=== PATIENT | female | born 1980 | race Caucasian/White ===

== ENCOUNTER → 2016-10-03 | Outpatient (CLI) | payer MEDICARE, OTHER ==
--- NOTE | 2016-10-03 08:35 | CT ---
EXAMINATION TYPE: CT brain wo con DATE OF EXAM: 10/03/2016 8:03 AM COMPARISON: NONE HISTORY: Migraine uspec without migraunosus CT DLP: [address] of the brain was performed. The ventricles, basal cisterns and sulci overlying the cerebral convexities demonstrate a normal appe arance. There is no evidence for intracranial hemorrhage or sulcal effacement. No mass effects are seen. Osseous calvarium is intact. If symptoms persist consider MRI as clinically warranted. IMPRESSION: 1. No acute intracranial process is seen at this time.
== END | disposition home or self-care (01) ==
LOC: RADCTMAIN 07:43
PROVIDERS: ATTEND Family Medicine
DX: G43.909 Migraine, unspecified, not intractable, without status migrainosus (principal)
CPT/HCPCS: 70450

== ENCOUNTER → 2016-11-18 | Outpatient (CLI) | payer MEDICARE, OTHER ==
--- NOTE | 2016-11-18 22:31 | MR ---
EXAMINATION TYPE: MR brain/cspine wo/w DATE OF EXAM: 11/18/2016 9:19 PM COMPARISON: CT brain October 03, 2016. HISTORY: Headaches and cervicalgia per order. Additional symptom s of forgetfulness, dizziness, and bilateral extremity numbness for one year per patient. TECHNIQUE: Multiplanar, multisequence images of the cervical spine, brain and brainstem are all performed withou t and with IV contrast, utilizing 20 mL intravenous MultiHance . FINDINGS: BRAIN: Diffusion weighted images demonstrate no evidence of a recent infarct or other diffusion abnormality. There is no extra-axial fluid collection or significant white matter signal abnormality. The ventr icular system and cisternal spaces are normal in size and appearance. The brain volume is age approp riate. Midline structures demonstrate normal morphology. The craniocervical junction appears within normal limits. Post contrast images demonstrate no abnormal enhancement. The dural venous sinuses appear pa tent. The visualized sinuses are clear and the globes are intact. IMPRESSION: Unremarkable MRI of the brain, no suspicious finding is seen to account for patient's sym ptoms. MRI CERVICAL SPINE: FINDINGS: Exam is slightly suboptimal as is degraded by patient motion artifact. Sagittal images of t he cervical spine show the craniocervical junction to appear within normal limits. The cervical and upper thoracic spinal cord is normal in course, caliber, and signal. There is dextroconvex scoliosis centered in the upper to midthoracic spine. The vertebral body and intravertebral disk heights are n ormal. No suspicious posterior disc herniations are seen on sagittal images. The bone marrow signal intensity is within normal limits. No suspicious postcontrast enhancement is identified. No significa nt spurring is noted. Axial images show the C2-C3 and C3-C4 levels to appear within normal limits. Axial images at C4-C5 and C5-C6 level show mild right-sided neural foraminal narrowing due to right-s ided uncovertebral facet arthropathy. Spinal canal is preserved and bilateral neural foramina are pat ent. Axial images at C6-C7 and C7-T1 levels are felt within normal limits. IMPRESSION: Some mild right-sided neural foraminal narrowing at mid cervical levels. Scoliotic curvat ure centered in thoracic spine noted.
== END | disposition home or self-care (01) ==
LOC: RADMRIMAIN 20:12
PROVIDERS: ATTEND Psychiatry & Neurology Pain Medicine
DX: M99.71 Connective tissue and disc stenosis of intervertebral foramina of cervical region (principal); M41.84 Other forms of scoliosis, thoracic region; M54.6 Pain in thoracic spine; R51 Headache
CPT/HCPCS: 70553; 72156; A9577

== ENCOUNTER → 2016-11-19 | Outpatient (CLI) | payer MEDICARE, OTHER ==
--- NOTE | 2016-11-19 21:18 | MR ---
EXAMINATION TYPE: MR thoracic spine wo con DATE OF EXAM: 11/19/2016 8:54 PM COMPARISON: NONE HISTORY: Back pain Multiplanar MultiSpin echo imaging of the thoracic spine was performed. Disc spaces: No evidence for herniation protrusion or significant degenerative disc disease. Spinal canal: No evidence for canal stenosis. No intrinsic or extrinsic lesion. Thoracic spinal cord: Thoracic spinal cord is of normal caliber and signal. Paraspinal soft tissues: No evidence for paraspinal mass. No destructive lesions seen. Vertebral segments: No evidence for fracture or bony lesion. IMPRESSION: Negative study
== END | disposition home or self-care (01) ==
LOC: RADMRIMAIN 20:15
PROVIDERS: ATTEND Psychiatry & Neurology Pain Medicine
DX: M54.6 Pain in thoracic spine (principal); M54.2 Cervicalgia; R51 Headache
CPT/HCPCS: 72146

== ENCOUNTER → 2017-04-02 | Outpatient (CLI) | payer MEDICARE, OTHER ==
--- NOTE | 2017-04-02 17:04 | CT ---
EXAMINATION TYPE: CT brain w con DATE OF EXAM: 04/02/2017 COMPARISON: 10/03/2016 HISTORY: Right eye pain x3 days. CT DLP: 999.8 mGycm Automated exposure control for dose reduction was used. CONTRAST: Performed with IV Contrast, patient injected with 100 mL of Omnipaque 240. FINDINGS: Ventricles have normal size. There is no mass effect nor midline shift. There is no sign of intracran ial hemorrhage. I see no pathologic enhancement. There is no sign of an orbital mass. IMPRESSION: NEGATIVE CT SCAN OF THE BRAIN. NO CHANGE.
== END | disposition home or self-care (01) ==
LOC: RADCTMAIN 16:35
PROVIDERS: ATTEND Physician Assistant
DX: H57.11 Ocular pain, right eye (principal)
CPT/HCPCS: 70460; Q9967

== ENCOUNTER → 2019-05-24 | Outpatient (CLI) | payer MEDICARE, OTHER ==
--- NOTE | 2019-05-24 11:27 | BD ---
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 Bone mineral density as measured about the Lumbar spine is: ----- L1-L4(G/cm2): 1.267 T Score Values are as follows: ----- L2: 0.1 ----- L3: 1.6 ----- L4: 0.6 ----- L1-L4:0.7 Bone mineral density has: Increased 3.2% since study of: 08/01/2013 Bone mineral density about the L Wrist (g/cm2): 0.641 T Score values are as follows: -----Dist. R+U: -1.1 -----Prox. R+U: -0.3 -----Radius total: -0.7 Bone mineral density has: Increased 4.2% since study of: 08/01/2013 IMPRESSION: Osteopenia (T Score between -2.5 and -1). There is slightly increased risk of fracture and the patient may be considered for treatment. Re-Screen 2-5 years. NOTE: T-SCORE=SD OF THE YOUNG ADULT MEAN.
== END | disposition home or self-care (01) ==
LOC: RADBDWWP 09:28
PROVIDERS: ATTEND Family Medicine
DX: M85.80 Other specified disorders of bone density and structure, unspecified site (principal); Z79.899 Other long term (current) drug therapy
CPT/HCPCS: 77080

== ENCOUNTER → 2020-02-22 | Outpatient (CLI) | payer MEDICARE, OTHER | END | disposition home or self-care (01) | LOC: LABWHC1 10:10 | PROVIDERS: ATTEND Family Medicine | DX: R05 Cough (principal); D89.9 Disorder involving the immune mechanism, unspecified | CPT/HCPCS: U0003; C9803 ==

== ENCOUNTER → 2020-02-27 | Outpatient (CLI) | payer MEDICARE, OTHER ==
--- NOTE | 2020-02-27 22:40 | XR ---
EXAMINATION TYPE: XR chest 2V DATE OF EXAM: 02/27/2020 CLINICAL HISTORY: Cough TECHNIQUE: Frontal and lateral views of the chest are obtained. COMPARISON: None FINDINGS: The cardiomediastinal silhouette is within normal limits for size. Pulmonary vasculature i s normal. There is no focal air space opacity, pleural effusion, or pneumothorax seen. The osseous st ructures are intact. IMPRESSION: No acute cardiopulmonary process.
== END | disposition home or self-care (01) ==
LOC: RADXRMAIN 16:37
PROVIDERS: ATTEND Family Medicine
DX: R05 Cough (principal)
CPT/HCPCS: 71046

== ENCOUNTER → 2021-08-09 | Outpatient (CLI) | payer MEDICARE, OTHER ==
--- NOTE | 2021-08-13 08:43 | MM ---
Reason for exam: screening (asymptomatic). Physical Findings: A clinical breast exam by your physician is recommended on an annual basis and results should be correlated with mammographic findings. MG 3D Screening Mammo W/Cad Bilateral CC and MLO view(s) were taken. No prior studies available for comparison. There are scattered fibroglandular densities. A few benign bilateral oil cyst calcifications. A 5mm low density nodule 3-4 o'clock left breast likely a cyst or intramammary lymph node. 6 month follow up recommended. Otherwise, no discrete abnormality. ASSESSMENT: Probably benign, BI-RAD 3 RECOMMENDATION: Follow-up diagnostic mammogram of the left breast in 6 months. (3D)
== END | disposition home or self-care (01) ==
LOC: RADMAMWWP 13:01
PROVIDERS: ATTEND Family Medicine
DX: Z12.31 Encounter for screening mammogram for malignant neoplasm of breast (principal)
CPT/HCPCS: 77063; 77067

== ENCOUNTER → 2021-11-28 | Outpatient (CLI) | payer MEDICARE, OTHER | END | disposition home or self-care (01) | LOC: RADXRMAIN 10:48 | PROVIDERS: ATTEND Family Medicine | DX: Z53.9 Procedure and treatment not carried out, unspecified reason (principal) ==

== ENCOUNTER → 2021-11-28 | Outpatient (CLI) | payer MEDICARE, OTHER ==
--- NOTE | 2021-11-29 07:42 | XR ---
Sacrum and coccyx, lumbar spine HISTORY: M 54.42 3 views of the sacrum and coccyx, 3 views of the lumbar spine Patient shows bilateral hip arthroplasty change. Sacroiliac joints are intact. Changes of osteitis pu bis noted incidentally. Sacrum is intact. Bone mineralization is normal. Lumbar vertebral bodies show preserved height and alignment. There is multilevel spondylosis. Loss of disc height present greatest at L1-2 and L2-3. Sclerosis present in the posterior elements of the lo wer lumbar spine. Bone mineralization is maintained. IMPRESSION: Degenerative disc disease. Postop changes.
== END | disposition home or self-care (01) ==
LOC: RADXRMAIN 10:58
PROVIDERS: ATTEND Family Medicine
DX: M51.36 Other intervertebral disc degeneration, lumbar region (principal); Z96.643 Presence of artificial hip joint, bilateral
CPT/HCPCS: 72100; 72220

== ENCOUNTER → 2022-02-10 | Outpatient (CLI) | payer MEDICARE, OTHER ==
--- NOTE | 2022-02-10 10:44 | MM ---
Reason for Exam: Additional evaluation requested from prior study. Last screening mammogram was performed 6 month(s) ago. Patient History: Menarche at age 16. First Full-Term at age 21. Last menstrual period: 02/10/2022 Risk Values: Caitlin 5 year model risk: 0.5%. NCI Lifetime model risk: 8.3%. Prior Study Comparison: 03/14/2009 Right Diagnostic Ultrasound, [facility]. 02/04/2010 Left Diagnostic Ultrasound, [facility]. 08/09/2021 Bilateral Screening Mammogram, [facility]. Tissue Density: Left: There are scattered fibroglandular densities. Findings: Analyzed By CAD. Average density parenchymal tissue appears stable. There are benign calcifications present. Small oval density in the 3:00 middle position appears stable or slightly smaller than comparison. No significant interval change is evident. Overall Assessment: Benign, BI-RAD 2 Management: Diagnostic Mammogram of both breasts in 6 months. A clinical breast exam by your physician is recommended on an annual basis and results should be correlated with mammographic findings. This exam should not preclude additional follow-up of suspicious palpable abnormalities. Results were given to the patient verbally at the time of exam. Electronically signed and approved by: Darren Cottrell D.O. Radiologis
== END | disposition home or self-care (01) ==
LOC: RADMAMWWP 09:53
PROVIDERS: ATTEND Family Medicine
DX: R92.1 Mammographic calcification found on diagnostic imaging of breast (principal)
CPT/HCPCS: 77065; G0279; 77061

== ENCOUNTER → 2022-04-09 | Outpatient (CLI) | payer MEDICARE, OTHER ==
--- NOTE | 2022-04-09 11:47 | US ---
EXAMINATION TYPE: US transvaginal DATE OF EXAM: 04/09/2022 COMPARISON: NONE CLINICAL HISTORY: R10.2 PELVIC AND PERINEAL PAIN. Patient unable to fill bladder. TECHNIQUE: Transvaginal (TV). Date of LMP: Patient had breakthrough bleeding, unclear LMP EXAM MEASUREMENTS: Uterus: 8.6 x 4.1 x 4.4 cm Endometrial Stripe: 1.4 cm Right Ovary: Obscured by overlying bowel gas Left Ovary: Obscured by overlying bowel gas 1. Uterus: Anteverted wnl 2. Endometrium: upper limits of normal 3. Right Ovary: Obscured by overlying bowel gas 4. Left Ovary: Obscured by overlying bowel gas 5. Bilateral Adnexa: wnl 6. Posterior cul-de-sac: wnl IMPRESSION: Limited exam secondary to bowel gas with out evidence of acute process.
== END | disposition home or self-care (01) ==
LOC: RADUSWWP 10:23
PROVIDERS: ATTEND Family Medicine
DX: R10.2 Pelvic and perineal pain (principal)
CPT/HCPCS: 76830

== ENCOUNTER → 2022-07-23 | Outpatient (CLI) | payer MEDICARE, OTHER ==
--- NOTE | 2022-07-23 15:53 | US ---
EXAMINATION TYPE: US pelvis complete transvag DATE OF EXAM: 07/23/2022 COMPARISON: US 04/09/2022 CLINICAL HISTORY: N92.1excessive/frequent menstruation w/irreg cycle. Pt states excessive vaginal ble eding this last month TECHNIQUE: Transvaginal (TV) and Transabdominal (TA) . Transabdominal sonographic images of the pel vis were acquired. Transvaginal sonographic images were medically necessary to better assess the fol lowing anatomy: Endometrium Date of LMP: Pt unsure, states bleeding on/off for entire month EXAM MEASUREMENTS: Uterus: 9.2 x 4.0 x 5.8 cm Endometrial Stripe: 0.4 cm Right Ovary: 2.2 x 1.7 x 2.3 cm Left Ovary: 2.7 x 2.0 x 2.5 cm 1. Uterus: Anteverted Heterogeneous, otherwise no abnormality visualized at this time 2. Endometrium: appeared wnl 3. Right Ovary: Only visualized transabdominally, appeared wnl 4. Left Ovary: Only visualized transabdominally, appeared wnl 5. Bilateral Adnexa: wnl 6. Posterior cul-de-sac: wnl IMPRESSION: 1. No acute pelvic process. 2. Normal endometrial thickness.
== END | disposition home or self-care (01) ==
LOC: RADUSWWP 14:18
PROVIDERS: ATTEND Family Medicine
DX: N92.1 Excessive and frequent menstruation with irregular cycle (principal)
CPT/HCPCS: 76830; 76856

== ENCOUNTER → 2022-09-22 | Outpatient (CLI) | payer MEDICARE, OTHER ==
--- NOTE | 2022-09-22 14:44 | MM ---
Reason for Exam: Additional evaluation requested from prior study. Last mammogram was performed 1 year(s) and 1 month(s) ago. Patient History: Menarche at age 16. First Full-Term at age 21. Last menstrual period: 09/12/2022 Risk Values: Caitlin 5 year model risk: 0.5%. NCI Lifetime model risk: 8.2%. Prior Study Comparison: 03/14/2009 Right Diagnostic Ultrasound, [facility]. 02/04/2010 Left Diagnostic Ultrasound, [facility]. 08/09/2021 Bilateral Screening Mammogram, [facility]. 02/10/2022 Left MG 3D diag mammo w/cad LT, [facility]. Tissue Density: There are scattered fibroglandular densities. Findings: Analyzed By CAD. There are a few scattered benign-appearing round calcifications throughout the bilateral breasts redemonstrated. Stable 4 mm oval mass in the outer upper left breast middle depth. No new masses or suspicious group of microcavitation bilaterally. There are a few scattered benign-appearing round calcifications throughout the bilateral breasts redemonstrated. Stable 4 mm oval mass in the outer upper left breast middle depth. No new masses or suspicious group of microcalcifications are seen bilaterally. Overall Assessment: Benign, BI-RAD 2 Management: Screening Mammogram of both breasts in 1 year. Return to routine follow-up. Results were given to the patient verbally at the time of exam. Electronically signed and approved by: Kennedy John M.D.
== END | disposition home or self-care (01) ==
LOC: RADMAMWWP 14:12
PROVIDERS: ATTEND Family Medicine
DX: R92.8 Other abnormal and inconclusive findings on diagnostic imaging of breast (principal)
CPT/HCPCS: 77066; G0279; 77062

== ENCOUNTER → 2022-10-15 | Outpatient (CLI) | payer MEDICARE, OTHER | END | disposition home or self-care (01) | LOC: LABWHC1 16:23 | PROVIDERS: ATTEND Nurse Practitioner Family | DX: E87.6 Hypokalemia (principal) | CPT/HCPCS: 36415; 84132 ==

== ENCOUNTER 2022-11-23 19:39 | Inpatient (IN) | payer MEDICARE, OTHER ==
[2022-11-23] MEDS ORDERED: SODIUM CHLORIDE 0.9% 1,000 ML IV STA (20:42)
[2022-11-23] MEDS ORDERED: NALOXONE 0.4 MG/ML 1 ML VIAL IV PRN (20:42)
--- NOTE | 2022-11-23 20:42 | ED ---
Recheck HPI - General Chief Complaint: Extremity Problem,Nontraumatic Stated Complaint: DVT in Leg Time Seen by Provider: 11/23/22 19:56 Source: patient, RN notes reviewed, old records reviewed Mode of arrival: ambulatory Limitations: no limitations - History of Present Illness Initial Comments: This is a 42-year-old female. Patient presents today for evaluation regards to pain leg pain with known history of DVT. Patient has significant DVT requiring vascular surgery evaluation, patient is brought in under her own travel, patient took her own vehicle as a transfer from [facility] where she was seen by vascular surgery. Patient is transferred this facility for vascular evaluation of DVT. MD Complaint: wound re-check, other (Reevaluation of DVT) -: hour(s) Returns Today for: persistent/worsening pain related to initial visit Symptoms Since Prior Visit: worsening pain Context: planned re-check Associated Symptoms: none Treatments Prior to Arrival: Given Pain Meds on - Related Data Home Medications Medication Instructions Recorded Confirmed Cetirizine HCl 10 mg PO DAILY 10/03/16 11/23/22 Folic Acid 1 mg PO DAILY 10/03/16 11/23/22 HYDROcodone/APAP 10-325MG [[place] 1 tab PO QID 10/03/16 11/23/22 10-325] Pregabalin [Lyrica] 225 mg PO BID 10/03/16 11/23/22 metHOTREXate sodium [Methotrexate] 20 mg PO MO 10/03/16 11/23/22 Albuterol Sulfate [Albuterol 2 puff PO RT-Q4H PRN 11/23/22 11/23/22 Sulfate Hfa] Apixaban [Eliquis] 5 mg PO BID 11/23/22 11/23/22 Butalb/APAP/Caff 50-325-40Mg 1 tab PO DAILY PRN 11/23/22 11/23/22 [Fioricet 50-325-40] Cyclobenzaprine [Flexeril] 10 mg PO BID 11/23/22 11/23/22 Dexlansoprazole [Dexlansoprazole 30 mg PO DAILY 11/23/22 11/23/22 Dr] Famotidine [Pepcid] 40 mg PO BID 11/23/22 11/23/22 Levothyroxine Sodium [Synthroid] 25 mcg PO DAILY 11/23/22 11/23/22 Vibegron [Gemtesa] 75 mg PO DAILY 11/23/22 11/23/22 ondansetron HCL [Zofran] 8 mg PO TID PRN 11/23/22 11/23/22 Allergies Allergy/AdvReac Type Severity Reaction Status Date / Time Penicillins Allergy Unknown Verified 11/23/22 21:56 Childhood Review of Systems ROS Statement: Those systems with pertinent positive or pertinent negative responses have been documented in the HPI. ROS Other: All systems not noted in ROS Statement are negative. Past Medical History Past Medical History: Deep Vein Thrombosis (DVT), Fibromyalgia, GERD/Reflux, Hypertension, Osteoarthritis (OA) History of Any Multi-Drug Resistant Organisms: None Reported Past Surgical History: Orthopedic Surgery, Tubal Ligation Additional Past Surgical History / Comment(s): bilateral hip, knee replacements, ankle fusions Past Anesthesia/Blood Transfusion Reactions: No Reported Reaction Past Psychological History: No Psychological Hx Reported Smoking Status: Never smoker Past Alcohol Use History: Rare Past Drug Use History: None Reported - Past Family History Mother Family Medical History: Cancer Father Family Medical History: Cancer General Exam Limitations: no limitations General appearance: alert, in no apparent distress Head exam: Present: atraumatic, normocephalic, normal inspection Eye exam: Present: normal appearance, PERRL, EOMI. Absent: scleral icterus, conjunctival injection, periorbital swelling ENT exam: Present: normal exam, mucous membranes moist Neck exam: Present: normal inspection. Absent: tenderness, meningismus, lymphadenopathy Respiratory exam: Present: normal lung sounds bilaterally. Absent: respiratory distress, wheezes, rales, rhonchi, stridor Cardiovascular Exam: Present: regular rate, normal rhythm, normal heart sounds. Absent: systolic murmur, diastolic murmur, rubs, gallop, clicks GI/Abdominal exam: Present: soft, normal bowel sounds. Absent: distended, tenderness, guarding, rebound, rigid Extremities exam: Present: normal inspection, full ROM, normal capillary refill. Absent: tenderness, pedal edema, joint swelling, calf tenderness Back exam: Present: normal inspection Neurological exam: Present: alert, oriented X3, CN II-XII intact Psychiatric exam: Present: normal affect, normal mood Skin exam: Present: warm, dry, intact, normal color. Absent: rash Course Vital Signs 11/23/22 11/23/22 20:09 22:19 Temperature 98.2 F 98.4 F Pulse Rate 98 82 Respiratory 16 18 Rate Blood Pressure 123/76 126/80 O2 Sat by Pulse 95 99 Oximetry - Reevaluation(s) Reevaluation #1: 11/23/22 23:15 Medical records reviewed. Reevaluation #2: 11/23/22 23:15 Patient has no change in symptoms here in the ER Reevaluation #3: 11/23/22 23:15 Patient informed results questions are answered Reevaluation #4: 11/23/22 23:16 Was pt. sent in by a medical professional or institution? @ -no Did you speak to anyone other than the patient for history? @ -no Did you review nursing and triage notes? @ -agree Were old charts reviewed? @ -no Differential Diagnosis? @ -prior EKG interpreted by me (3pts min.)? @ -no X-rays interpreted by me (1pt min.)? @ -no CT interpreted by me (1pt min.)? @ -no U/S interpreted by me (1pt. min.)? @ -no What testing was considered but not performed? (CT, X-rays, U/S, labs)? Why? @ -no What meds were considered but not given? Why? @ -no Did you discuss the management of the patient with other professionals? @ -no Did you reconcile home meds? @ -no Was smoking cessation discussed for >3mins.? @ -no Was critical care preformed (if so, how long)? @ -no Were there social determinants of health that impacted care today? How? (Homelessness, low income, unemployed, alcoholism, drug addiction, transportation, low edu. Level, literacy, decrease access to med. care, [facility], rehab)? @ -no Was there de-escalation of care discussed even if they declined? (Discuss DNR or withdrawal of care, Hospice)? @ -no What co-morbidities impacted this encounter? (DM, HTN, Smoking, COPD, CAD, Cancer, CVA, Hep., AIDS, mental health diagnosis, sleep apnea, morbid obesity)? @ -none Was patient admitted / discharged? @ -42 female accepted in transfer for DVT. Vascular surgery intervention. Patient be admitted for treatment of DVT Admitted Undiagnosed new problem with uncertain prognosis? @ -no Drug Therapy requiring intensive monitoring for toxicity (Heparin, Nitro, Insulin, Cardizem)? @ -no Were any procedures done? @ -no Diagnosis/symptom? @ -DVT of right lower extremity Acute, or Chronic, or Acute on Chronic? @ -Acute Uncomplicated (without systemic symptoms) or Complicated (systemic symptoms)? @ -uncomplicated Side effects of treatment? @ -no Exacerbation, Progression, or Severe Exacerbation] @ -no Poses a threat to life or bodily function? @ -yes could lead to PE and arrest Medical Decision Making - Medical Decision Making 42 female to the emergency department with DVT this patient will be admitted for vascular surgery consultation, pain is controlled - Lab Data Result diagrams: 11/25/22 05:19 11/25/22 05:19 Disposition Clinical Impression: Deep vein thrombosis (DVT) of lower extremity, Deep vein thrombosis (DVT) of right lower extremity, Chronic ulcer of left foot with fat layer exposed Disposition: ADMITTED IP TO THIS HOSP Condition: Good Is patient prescribed a controlled substance at d/c from ED?: No Time of Disposition: 20:40
[2022-11-23] MEDS ORDERED: MORPHINE SULFATE 4 MG/ML SYRINGE IV PRN (20:55)
[2022-11-23] MEDS: SODIUM CHLORIDE 0.9% 1,000 ML IV SCH (21:01)
[2022-11-23 21:20] LABS: Basophils % (A) 1 %; Eosinophils # (A) 0.2 k/uL (0-0.7); Eosinophils % (A) 3 %; HCT 34.8 % (34.0-46.0); HGB 11.8 gm/dL (11.4-16.0); Lymphocytes # (A) 1.9 k/uL (1.0-4.8); Lymphocytes % (A) 34 %; MCV 111.6 fL (80.0-100.0); Macrocytosis Marked; Mean Platelet Volume 8.6; Monocytes # (A) 0.4 k/uL (0-1.0); Monocytes % (A) 8 %; Neutrophils # (A) 2.9 k/uL (1.3-7.7); Neutrophils % (A) 52 %; Platelet Count 258 k/uL (150-450); RBC 3.12 m/uL (3.80-5.40); RDW 14.9 % (11.5-15.5); WBC 5.7 k/uL (3.8-10.6)
[2022-11-23 21:24] LABS: Partial Thromboplastin Time 25.7 sec (22.0-30.0); Prothrombin Time 10.6 sec (9.0-12.0)
[2022-11-23 21:29] LABS: ALT 29 U/L (4-34); AST 35 U/L (14-36); African American GFR (CKD) >90 (>60 ml/min/1.73 sqM); Albumin 4.4 g/dL (3.5-5.0); Alkaline Phosphatase 107 U/L (38-126); Anion Gap 13 mmol/L; Blood Urea Nitrogen 14 mg/dL (7-17); Calcium 9.3 mg/dL (8.4-10.2); Carbon Dioxide 22 mmol/L (22-30); Chloride 105 mmol/L (98-107); Glucose 87 mg/dL (74-99); Non-African American GFR(CKD) 85 (>60 ml/min/1.73 sqM); Phosphorus 3.2 mg/dL (2.5-4.5); Sodium 140 mmol/L (137-145); Total Bilirubin 0.6 mg/dL (0.2-1.3); Total Protein 7.2 g/dL (6.3-8.2)
[2022-11-23 22:26] LABS: Polychromasia Present
[2022-11-23] MEDS ORDERED: APIXABAN 5 MG TAB PO SCH (23:15)
[2022-11-23] MEDS: PREGABALIN 75 MG CAP PO SCH ×2 (23:26→23:29)
[2022-11-23] MEDS: FAMOTIDINE 20 MG TAB PO SCH (23:26)
[2022-11-23] MEDS: ACETAMINOPHEN TAB 325 MG TAB PO PRN (23:27)
[2022-11-24] MEDS: LEVOTHYROXINE 25 MCG TAB PO SCH (06:25)
[2022-11-24] MEDS ORDERED: HEPARIN SODIUM 1,000 UN/ML (10ML VL) IV PRN (07:43)
[2022-11-24 08:11] LABS: HCT 34.7 % (34.0-46.0); HGB 11.4 gm/dL (11.4-16.0); Hypochromasia Slight; MCH 37.4 pg (25.0-35.0); MCHC 32.8 g/dL (31.0-37.0); MCV 114.3 fL (80.0-100.0); Macrocytosis Marked; Mean Platelet Volume 8.3; Platelet Count 239 k/uL (150-450); RBC 3.03 m/uL (3.80-5.40); RDW 14.7 % (11.5-15.5); WBC 4.5 k/uL (3.8-10.6)
[2022-11-24 08:17] LABS: Partial Thromboplastin Time 23.3 sec (22.0-30.0); Prothrombin Time 10.7 sec (9.0-12.0)
--- NOTE | 2022-11-24 08:48 | P.GSCN ---
History of Present Illness Consult date: 11/24/22 Reason for Consult: Right lower extremity DVT Requesting physician: Levon Tidwell History of present illness: This a 42-year-old female who had initially presented to [facility] with complaints of increased swelling to her right lower extremity. Patient with a known extensive right lower extremity DVT diagnosed about 3 weeks ago and had initially seen Dr. Boston, and was started on Eliquis. Her past medical history includes rheumatoid arthritis diagnosed at age 12, fibromyalgia, GERD, hypertension, and multiple surgeries. Apparently patient had continued pain and swelling, was referred to Dr. Del Rosario and saw him last week in the office and was offered thrombectomy. Patient states that she was nervous to undergo procedure and opted not to follow through with thrombectomy. Yesterday patient states she was having some increased swelling in her right foot, her sister was concerned and told her to go to the emergency department. She initially went to [facility] was seen by Dr. Boston who had contacted Dr. Del Rosario who recommended starting a heparin drip and transferring patient to this hospital for possible surgical intervention. She states she is not in any more pain that she had been. States she is able to ambulate without difficulty. States only discomfort she has a slip squeezing of her leg or putting pressure on it. She has been taking her Eliquis as directed. States swelling in her foot has improved since being admitted to the hospital. She denies any shortness of breath or chest pain, no fevers, chills, abdominal pain, nausea or vomiting. States she has sensorimotor intact. Review of Systems A 14 point review systems was completed all pertinent positives and negatives as stated in the HPI. Past Medical History Past Medical History: Deep Vein Thrombosis (DVT), Fibromyalgia, GERD/Reflux, Hypertension, Osteoarthritis (OA) History of Any Multi-Drug Resistant Organisms: None Reported Past Surgical History: Orthopedic Surgery, Tubal Ligation Additional Past Surgical History / Comment(s): bilateral hip, knee replacements, ankle fusions Past Anesthesia/Blood Transfusion Reactions: No Reported Reaction Past Psychological History: No Psychological Hx Reported Smoking Status: Never smoker Past Alcohol Use History: Rare Past Drug Use History: None Reported - Past Family History Mother Family Medical History: Cancer Father Family Medical History: Cancer Medications and Allergies Home Medications Medication Instructions Recorded Confirmed Type Cetirizine HCl 10 mg PO DAILY 10/03/16 11/23/22 History Folic Acid 1 mg PO DAILY 10/03/16 11/23/22 History HYDROcodone/APAP 10-325MG [[place] 1 tab PO QID 10/03/16 11/23/22 History 10-325] Pregabalin [Lyrica] 225 mg PO BID 10/03/16 11/23/22 History metHOTREXate sodium [Methotrexate] 20 mg PO MO 10/03/16 11/23/22 History Albuterol Sulfate [Albuterol 2 puff PO RT-Q4H PRN 11/23/22 11/23/22 History Sulfate Hfa] Apixaban [Eliquis] 5 mg PO BID 11/23/22 11/23/22 History Butalb/APAP/Caff 50-325-40Mg 1 tab PO DAILY PRN 11/23/22 11/23/22 History [Fioricet 50-325-40] Cyclobenzaprine [Flexeril] 10 mg PO BID 11/23/22 11/23/22 History Dexlansoprazole [Dexlansoprazole 30 mg PO DAILY 11/23/22 11/23/[address]] Famotidine [Pepcid] 40 mg PO BID 11/23/22 11/23/22 History Levothyroxine Sodium [Synthroid] 25 mcg PO DAILY 11/23/22 11/23/22 History Vibegron [Gemtesa] 75 mg PO DAILY 11/23/22 11/23/22 History ondansetron HCL [Zofran] 8 mg PO TID PRN 11/23/22 11/23/22 History Allergies Allergy/AdvReac Type Severity Reaction Status Date / Time Penicillins Allergy Unknown Verified 11/23/22 21:56 Childhood Surgical - Exam Vital Signs Temp Pulse Resp BP Pulse Ox 98.2 F 98 16 123/76 95 11/23/22 20:09 11/23/22 20:09 11/23/22 20:09 11/23/22 20:09 11/23/22 20:09 General appearance: The patient is alert, oriented, appears in no acute distress. HET: Head is normocephalic and atraumatic. Pupils are equal and reactive. Neck: Supple.. Trachea midline. Heart: Regular. Lungs: Equal expansion, normal respiratory effort. Abdomen: Soft, nontender, nondistended. Extremities: Normal skin color and turgor. No cyanosis, rash, ulceration, or clubbing. Mild swelling with non-pitting edema to right lower extremity from knee down to foot. Palpable PT and DP pulses. Sensorimotor intact. Neurological: No focal deficits. Strength and sensation are grossly intact. Results - Labs 11/24/22 07:49 11/23/22 20:58 Abnormal Lab Results - Last 24 Hours (Table) 11/23/22 11/24/22 Range/Units 20:58 07:49 RBC 3.12 L 3.03 L (3.80-5.40) m/uL MCV 111.6 H 114.3 H (80.0-100.0) fL MCH 38.0 H 37.4 H (25.0-35.0) pg Macrocytosis Marked A Marked A Diabetes panel 11/23/22 Range/Units 20:58 Sodium 140 (137-145) mmol/L Potassium 4.0 (3.5-5.1) mmol/L Chloride 105 (98-107) mmol/L Carbon Dioxide 22 (22-30) mmol/L BUN 14 (7-17) mg/dL Creatinine 0.86 (0.52-1.04) mg/dL Glucose 87 (74-99) mg/dL Calcium 9.3 (8.4-10.2) mg/dL AST 35 (14-36) U/L ALT 29 (4-34) U/L Alkaline Phosphatase 107 (38-126) U/L Total Protein 7.2 (6.3-8.2) g/dL Albumin 4.4 (3.5-5.0) g/dL Calcium panel 11/23/22 Range/Units 20:58 Calcium 9.3 (8.4-10.2) mg/dL Phosphorus 3.2 (2.5-4.5) mg/dL Albumin 4.4 (3.5-5.0) g/dL Pituitary panel 11/23/22 Range/Units 20:58 Sodium 140 (137-145) mmol/L Potassium 4.0 (3.5-5.1) mmol/L Chloride 105 (98-107) mmol/L Carbon Dioxide 22 (22-30) mmol/L BUN 14 (7-17) mg/dL Creatinine 0.86 (0.52-1.04) mg/dL Glucose 87 (74-99) mg/dL Calcium 9.3 (8.4-10.2) mg/dL Adrenal panel 11/23/22 Range/Units 20:58 Sodium 140 (137-145) mmol/L Potassium 4.0 (3.5-5.1) mmol/L Chloride 105 (98-107) mmol/L Carbon Dioxide 22 (22-30) mmol/L BUN 14 (7-17) mg/dL Creatinine 0.86 (0.52-1.04) mg/dL Glucose 87 (74-99) mg/dL Calcium 9.3 (8.4-10.2) mg/dL Total Bilirubin 0.6 (0.2-1.3) mg/dL AST 35 (14-36) U/L ALT 29 (4-34) U/L Alkaline Phosphatase 107 (38-126) U/L Total Protein 7.2 (6.3-8.2) g/dL Albumin 4.4 (3.5-5.0) g/dL Assessment and Plan Assessment: 1. Right lower extremity DVT 2. Right foot swelling, improved 3. Rheumatoid arthritis 4. Fibromyalgia 5. History of hypertension Plan: 1. Discontinue Eliquis and start Heparin drip 2. ROSETTA hose to right lower extremity 3. Elevate right lower extremity 4. Make nothing by mouth after midnight 5. Further recommendations forthcoming from vascular surgeon, possible t hrombectomy Thank you for this consultation, we will continue to follow. The impression and plan of care has been dictated as directed. Dr. Vann I performed a history and examination of this patient, discussed the same with the dictator. I agree with the dictator's note ,documented as a scribe. Any additional findings or plans will be noted.
[2022-11-24 09:00] LABS: Eosinophils # (M) 0.05 k/uL (0-0.7); Lymphocytes # (M) 1.49 k/uL (1.0-4.8); Monocytes # (M) 0.36 k/uL (0-1.0); Neutrophils # (M) 2.61 k/uL (1.3-7.7); Neutrophils % (M) 58 %; Nucleated Red Blood Cells 0 /100 WBC (0-0); Total Cells Counted 100
[2022-11-24 09:02] LABS: Polychromasia Present
[2022-11-24] MEDS: FAMOTIDINE 20 MG TAB PO SCH ×2 (09:28→20:06)
[2022-11-24] MEDS: HEPARIN SOD,PORK IN 0.45% NACL 25,000 UNIT in 0.45% NACL 1 250ML.BAG IV SCH ×2 (09:34→22:17)
[2022-11-24] MEDS ORDERED: ALBUTEROL NEBULIZED 2.5 MG/3 ML INHALATION PRN (10:21)
[2022-11-24] MEDS: ONDANSETRON 4 MG/2 ML VIAL IVP PRN (12:12)
[2022-11-24] MEDS: HYDROcodone/APAP 10-325MG 1 EACH TAB PO SCH ×3 (12:12→22:13)
--- NOTE | 2022-11-24 14:16 | P.HPIM ---
History of Present Illness H&P Date: 11/24/22 History of present illness; patient is a 42-year-old lady with past medical history significant for recently diagnosed right lower extremity DVT currently on Eliquis who brought to the ER because of worsening right lower extremity swelling.patient was diagnosed 3 weeks ago for acute DVT and was seeing Dr. Boston, and was started on Eliquis. Apparently patient had continued pain and swelling, was referred to Dr. Del Rosario who offered thrombectomy. Patient stated that she was nervous to undergo procedure and opted not to follow through with thrombectomy. Over the last 2 days patient noticed that there was increased swelling in her right foot, her sister was concerned and told her to go to the emergency department. She initially went to [facility] was seen by Dr. Boston who had contacted Dr. Del Rosario who recommended starting a heparin drip and transferring patient to this hospital for possible surgical intervention. Patient was admitted to internal medicine service for further evaluation and treatment REVIEW OF SYSTEMS: CONSTITUTIONAL: No fever, no malaise, no fatigue. HEENT: No recent visual problems or hearing problems. Denied any sore throat. CARDIOVASCULAR: No chest pain, orthopnea, PND, no palpitations, no syncope. PULMONARY: No shortness of breath, no cough, no hemoptysis. GASTROINTESTINAL: No diarrhea, no nausea, no vomiting, no abdominal pain. NEUROLOGICAL: No headaches, no weakness, no numbness. HEMATOLOGICAL: Denies any bleeding or petechiae. GENITOURINARY: Denies any burning micturition, frequency, or urgency. MUSCULOSKELETAL/RHEUMATOLOGICAL: As mentioned in HPI ENDOCRINE: Denies any polyuria or polydipsia. The rest of the 14-point review of systems is negative. PHYSICAL EXAMINATION: GENERAL: The patient is alert and oriented x3, not in any acute distress. Well developed, well nourished. HEENT: Pupils are round and equally reacting to light. EOMI. No scleral icterus. No conjunctival pallor. Normocephalic, atraumatic. No pharyngeal erythema. No thyromegaly. CARDIOVASCULAR: S1 and S2 present. No murmurs, rubs, or gallops. PULMONARY: Chest is clear to auscultation, no wheezing or crackles. ABDOMEN: Soft, nontender, nondistended, normoactive bowel sounds. No palpable organomegaly. MUSCULOSKELETAL: No joint swelling or deformity. EXTREMITIES: Right lower extremity swollen, pulses palpable NEUROLOGICAL: Gross neurological examination did not reveal any focal deficits. SKIN: No rashes. Assessment and plan Right lower extremity DVT Right foot swelling, improved Rheumatoid arthritis Fibromyalgia History of hypertension Hypothyroidism Plan; monitor vital signs Monitor CBC Monitor CMP Continue Synthroid continue pharmacy dose heparin Resume home meds Follow-up in vascular surgery recommendations Past Medical History Past Medical History: Deep Vein Thrombosis (DVT), Fibromyalgia, GERD/Reflux, Hypertension, Osteoarthritis (OA) History of Any Multi-Drug Resistant Organisms: None Reported Past Surgical History: Orthopedic Surgery, Tubal Ligation Additional Past Surgical History / Comment(s): bilateral hip, knee replacements, ankle fusions Past Anesthesia/Blood Transfusion Reactions: No Reported Reaction Past Psychological History: No Psychological Hx Reported Smoking Status: Never smoker Past Alcohol Use History: Rare Past Drug Use History: None Reported - Past Family History Mother Family Medical History: Cancer Father Family Medical History: Cancer Medications and Allergies Home Medications Medication Instructions Recorded Confirmed Type Cetirizine HCl 10 mg PO DAILY 10/03/16 11/23/22 History Folic Acid 1 mg PO DAILY 10/03/16 11/23/22 History HYDROcodone/APAP 10-325MG [[place] 1 tab PO QID 10/03/16 11/23/22 History 10-325] Pregabalin [Lyrica] 225 mg PO BID 10/03/16 11/23/22 History metHOTREXate sodium [Methotrexate] 20 mg PO MO 10/03/16 11/23/22 History Albuterol Sulfate [Albuterol 2 puff PO RT-Q4H PRN 11/23/22 11/23/22 History Sulfate Hfa] Apixaban [Eliquis] 5 mg PO BID 11/23/22 11/23/22 History Butalb/APAP/Caff 50-325-40Mg 1 tab PO DAILY PRN 11/23/22 11/23/22 History [Fioricet 50-325-40] Cyclobenzaprine [Flexeril] 10 mg PO BID 11/23/22 11/23/22 History Dexlansoprazole [Dexlansoprazole 30 mg PO DAILY 11/23/22 11/23/[address]] Famotidine [Pepcid] 40 mg PO BID 11/23/22 11/23/22 History Levothyroxine Sodium [Synthroid] 25 mcg PO DAILY 11/23/22 11/23/22 History Vibegron [Gemtesa] 75 mg PO DAILY 11/23/22 11/23/22 History ondansetron HCL [Zofran] 8 mg PO TID PRN 11/23/22 11/23/22 History Allergies Allergy/AdvReac Type Severity Reaction Status Date / Time Penicillins Allergy Unknown Verified 11/23/22 21:56 Childhood Physical Exam Vitals: Vital Signs Temp Pulse Pulse Resp BP BP Pulse Ox 11/24/22 08:58 97 11/24/22 07:59 97.6 F 89 18 125/73 92 L 11/24/22 01:29 97.7 F 93 16 121/76 97 11/23/22 22:28 98.3 F 92 16 147/85 95 11/23/22 22:19 98.4 F 82 18 126/80 99 11/23/22 20:09 98.2 F 98 16 123/76 95 Intake and Output 11/23/22 11/24/22 11/24/22 22:59 06:59 14:59 Intake Total 820 Balance 820 Intake: Intake, IV Titration 820 Amount Sodium Chloride 0.9% 1, 780 000 ml @ 130 mls/hr IV . Q7H42M STA Rx#:[id number] Sodium Chloride 0.9% 1, 40 000 ml @ 20 mls/hr IV . Q24H PEREZ Rx#:[id number] Other: Voiding Method Toilet # Voids 2 Weight 100.698 kg Results CBC & Chem 7: 11/24/22 07:49 11/23/22 20:58 Labs: Abnormal Lab Results - Last 24 Hours (Table) 11/23/22 11/24/22 Range/Units 20:58 07:49 RBC 3.12 L 3.03 L (3.80-5.40) m/uL MCV 111.6 H 114.3 H (80.0-100.0) fL MCH 38.0 H 37.4 H (25.0-35.0) pg Macrocytosis Marked A Marked A Thrombosis Risk Factor Assmnt - Choose All That Apply Any of the Below Risk Factors Present?: Yes Each Factor Represents 1 point: Age 41-60 years, Swollen legs (current) Other Risk Factors: Yes (DVT) Each Risk Factor Represents 3 Points: History of DVT/PE Other congenital or acquired thrombophilia - If yes, enter type in comment: No Thrombosis Risk Factor Assessment Total Risk Factor Score: 5 Thrombosis Risk Factor Assessment Level: High Risk
[2022-11-24] MEDS: PREGABALIN 75 MG CAP PO SCH (20:06)
[2022-11-24] MEDS: CYCLOBENZAPRINE 10 MG TAB PO SCH (20:06)
[2022-11-24] MEDS: SODIUM CHLORIDE 0.9% 1,000 ML IV SCH (22:21)
[2022-11-25] MEDS: ACETAMINOPHEN TAB 325 MG TAB PO PRN (02:17)
[2022-11-25] MEDS: LEVOTHYROXINE 25 MCG TAB PO SCH (06:21)
[2022-11-25] MEDS: HYDROcodone/APAP 10-325MG 1 EACH TAB PO SCH (07:47)
[2022-11-25] MEDS: FAMOTIDINE 20 MG TAB PO SCH (07:48)
[2022-11-25] MEDS: PREGABALIN 75 MG CAP PO SCH (07:48)
[2022-11-25] MEDS: CYCLOBENZAPRINE 10 MG TAB PO SCH (07:48)
[2022-11-25] MEDS: ONDANSETRON 4 MG/2 ML VIAL IVP PRN (07:51)
[2022-11-25 07:52] VITALS: BP 87/56; PULSE 90; RESP 16; TEMP 97.8
[2022-11-25 08:51] LABS: HCT 30.7 % (37.2-46.3); HGB 9.9 g/dL (12.0-15.0); MCH 37.5 pg (27.0-32.0); MCHC 32.2 g/dL (32.0-37.0); MCV 116.3 fL (80.0-97.0); Mean Platelet Volume 11.3 fL (9.5-12.2); NRBC Per 100 WBC 0 /100 WBCS (0.0-0.0); Platelet Count 227 X 10*3/uL (140-440); RBC 2.64 X 10*6/uL (4.10-5.20); RDW 14.6 % (11.5-14.5); WBC 6.28 X 10*3/uL (4.50-10.00)
--- NOTE | 2022-11-25 08:54 | US ---
EXAMINATION TYPE: US venous doppler duplex LE RT DATE OF EXAM: 11/25/2022 8:43 AM COMPARISON: NONE CLINICAL INDICATION: Female, 42 years old with history of DVT right lower ex; Pain and swelling right leg. Patient is on heparin. Patient states she had a prior ultrasound at an outside facility which s howed DVT in the right leg 1 month ago. Hx right knee replacement. SIDE PERFORMED: Right TECHNIQUE: The lower extremity deep venous system is examined utilizing real time linear array sonog vasquez with graded compression, doppler sonography and color-flow sonography. VESSELS IMAGED: Common Femoral Vein Deep Femoral Vein Greater Saphenous Vein * Femoral Vein Popliteal Vein Small Saphenous Vein * Proximal Calf Veins (* superficial vessels) Right Leg: Positive for DVT. Echoes seen within CFV, femoral vein, popliteal vein, and prox calf v eins. Thready flow/color defect seen within these veins. No color flow seen in distal femoral vein and very minimal color flow seen in popliteal vein. IMPRESSION: Exam positive for right lower extremity DVT. This may be occlusive at the lower femoral vein. Possibl y some early recanalization elsewhere given tready flow from the common femoral vein down into the up per calf.
[2022-11-25] MEDS ORDERED: FOLIC ACID 1 MG TAB PO SCH (09:00)
[2022-11-25] MEDS ORDERED: LORATADINE 10 MG TAB PO SCH (09:00)
--- NOTE | 2022-11-25 09:06 | P.PN ---
Subjective Progress Note Date: 11/25/22 Principal diagnosis: Right lower extremity DVT Patient was seen and examined this morning is a follow-up for right lower extremity DVT with increased swelling in her foot. Was admitted and started on a heparin drip. Initial venous duplex done at outside facility and again last week at Dr. Del Rosario's office he shouldn't states no additional swelling in her right leg, minimal pain, pain does increase with squeezing of her calf. Eyes any shortness of breath or chest pain. Repeat venous duplex with echo seen within the common femoral vein, femoral vein, popliteal and proximal calf veins. Thready flow color defect seen within these veins. No color flow in the distal femoral vein and very minimal color flow and the popliteal vein. Objective - Vital Signs Vital signs: Vital Signs Temp 97.8 F 11/25/22 07:51 Pulse 90 11/25/22 07:51 Resp 16 11/25/22 07:51 BP 87/56 11/25/22 07:51 Pulse Ox 96 11/25/22 07:51 FiO2 Intake & Output 11/24/22 11/25/22 11/25/22 18:59 06:59 18:59 Intake Total 348.829 6406.594 Balance 620.338 5421.594 Intake: Intake, IV Titration 119.632 463.594 Amount Heparin Sod,Pork in 0.45% 119.632 243.594 NaCl 25,000 unit In 0.45 % NaCl 1 250ml.bag @ 18 UNITS/KG/HR 18.126 mls/hr IV .[id number] PEREZ Rx#: [id number] Sodium Chloride 0.9% 1, 220 000 ml @ 20 mls/hr IV . Q24H PEREZ Rx#:[id number] Oral 960 Other: Voiding Method Toilet Toilet Toilet # Voids 1 5 # Bowel Movements 1 - Exam General appearance: The patient is alert, oriented, appears in no acute distress. HET: Head is normocephalic and atraumatic. Pupils are equal and reactive. Neck: Supple.. Trachea midline. Heart: Regular. Lungs: Equal expansion, normal respiratory effort. Abdomen: Soft, nontender, nondistended. Extremities: Normal skin color and turgor. No cyanosis, rash, ulceration, or clubbing. Mild swelling with non-pitting edema to right lower extremity from knee down to foot. Palpable PT and DP pulses. Sensorimotor intact. Neurological: No focal deficits. Strength and sensation are grossly intact. - Labs CBC & Chem 7: 11/25/22 05:19 11/23/22 20:58 Labs: Abnormal Lab Results - Last 24 Hours (Table) 11/24/22 11/24/22 11/25/22 Range/Units 15:16 21:53 05:19 RBC 2.64 L (4.10-5.20) X 10*6/uL Hgb 9.9 L (12.0-15.0) g/dL Hct 30.7 L (37.2-46.3) % MCV 116.3 H (80.0-97.0) fL MCH 37.5 H (27.0-32.0) pg RDW 14.6 H (11.5-14.5) % APTT 40.3 H 102.1 H* (22.0-30.0) sec 11/25/22 Range/Units 05:19 RBC (4.10-5.20) X 10*6/uL Hgb (12.0-15.0) g/dL Hct (37.2-46.3) % MCV (80.0-97.0) fL MCH (27.0-32.0) pg RDW (11.5-14.5) % APTT 89.3 H (22.0-30.0) sec Assessment and Plan Assessment: 1. Right lower extremity DVT, improving 2. Right foot swelling, improved 3. Rheumatoid arthritis 4. Fibromyalgia 5. History of hypertension Plan: 1. Discontinue heparin drip and resume Eliquis 2. ROSETTA hose to right lower extremity 3. Elevate right lower extremity 4. Regular diet 5. No indication for any vascular surgical intervention. Patient may be discharged. Thank you for this consultation, we will sign off at this time. The impression and plan of care has been dictated as directed. Dr. Del Rosario I performed a history and examination of this patient, discussed the same with the dictator. I agree with the dictator's note ,documented as a scribe. Any additional findings or plans will be noted.
[2022-11-25] MEDS ORDERED: APIXABAN 5 MG TAB PO SCH (09:15)
[2022-11-25 09:42] LABS: African American GFR (CKD) 106.1 (60.0-200.0); Albumin 3.8 g/dL (3.8-4.9); Albumin/Globulin Ratio 1.81 (1.60-3.17); Anion Gap 12.9 mmol/L (10.00-18.00); BUN/Creat Ratio 15.13 Ratio (12.00-20.00); Blood Urea Nitrogen 12.1 mg/dL (9.0-27.0); Calcium 8.9 mg/dL (8.7-10.3); Carbon Dioxide 21.1 mmol/L (20.0-27.5); Globulin 2.1 g/dL (1.6-3.3); Non-African American GFR(CKD) 91.6 (60.0-200.0); Potassium 3.9 mmol/L (3.5-5.5); Total Bilirubin 0.3 mg/dL (0.30-1.20); Total Protein 5.9 g/dL (6.2-8.2)
--- NOTE | 2022-11-25 10:55 | P.DS ---
Providers Date of admission: 11/23/22 20:42 Expected date of discharge: 11/25/22 Attending physician: Beau Pro Consults: 11/23/22 20:55 Consult Physician Routine Consulting Provider: Fab Del Rosario Consult Reason/Comments: known Do you want consulting provider notified?: Yes Primary care physician: Nahun Choudhury [facility] Course: Discharge diagnoses; Right lower extremity DVT Right foot swelling, improved Rheumatoid arthritis Fibromyalgia History of hypertension Hypothyroidism Hospital course; patient is a 42-year-old lady with past medical history significant for recently diagnosed right lower extremity DVT currently on Eliquis who brought to the ER because of worsening right lower extremity swelling.patient was diagnosed 3 weeks ago for acute DVT and was seeing Dr. Boston, and was started on Eliquis. Apparently patient had continued pain and swelling, was referred to Dr. Del Rosario who offered thrombectomy. Patient stated that she was nervous to undergo procedure and opted not to follow through with thrombectomy. Over the last 2 days patient noticed that there was increased swelling in her right foot, her sister was concerned and told her to go to the emergency department. She initially went to [facility] was seen by Dr. Boston who had contacted Dr. Del Rosario who recommended starting a heparin drip and transferring patient to this hospital for possible surgical intervention. Patient was admitted to internal medicine service for further evaluation and treatment 11/25. Patient seen and examined. Vascular surgery evaluated the patient, recommended no surgical intervention,ROSETTA hose to right lower extremity, recommending Elevate right lower extremity patient switch back to Eliquis, being discharged in stable condition PHYSICAL EXAMINATION: GENERAL: The patient is alert and oriented x3, not in any acute distress. Well developed, well nourished. HEENT: Pupils are round and equally reacting to light. EOMI. No scleral icterus. No conjunctival pallor. Normocephalic, atraumatic. No pharyngeal erythema. No thyromegaly. CARDIOVASCULAR: S1 and S2 present. No murmurs, rubs, or gallops. PULMONARY: Chest is clear to auscultation, no wheezing or crackles. ABDOMEN: Soft, nontender, nondistended, normoactive bowel sounds. No palpable organomegaly. MUSCULOSKELETAL: No joint swelling or deformity. EXTREMITIES: No cyanosis, clubbing, or pedal edema. NEUROLOGICAL: Gross neurological examination did not reveal any focal deficits. SKIN: No rashes. Patient Condition at Discharge: Good Plan - Discharge Summary Discharge Rx Participant: Yes New Discharge Prescriptions: Continue metHOTREXate sodium [Methotrexate] 20 mg PO MO Folic Acid 1 mg PO DAILY Pregabalin [Lyrica] 225 mg PO BID HYDROcodone/APAP 10-325MG [[place] 10-325] 1 tab PO QID Cetirizine HCl 10 mg PO DAILY Apixaban [Eliquis] 5 mg PO BID Albuterol Sulfate [Albuterol Sulfate Hfa] 2 puff PO RT-Q4H PRN PRN Reason: Shortness Of Breath ondansetron HCL [Zofran] 8 mg PO TID PRN PRN Reason: Nausea And Vomiting Vibegron [Gemtesa] 75 mg PO DAILY Famotidine [Pepcid] 40 mg PO BID Cyclobenzaprine [Flexeril] 10 mg PO BID Levothyroxine Sodium [Synthroid] 25 mcg PO DAILY Dexlansoprazole [Dexlansoprazole Dr] 30 mg PO DAILY Butalb/APAP/Caff 50-325-40Mg [Fioricet 50-325-40] 1 tab PO DAILY PRN PRN Reason: Migraine Headache Discharge Medication List Cetirizine HCl 10 mg PO DAILY 10/03/16 [History] Folic Acid 1 mg PO DAILY 10/03/16 [History] HYDROcodone/APAP 10-325MG [[place] 10-325] 1 tab PO QID 10/03/16 [History] Pregabalin [Lyrica] 225 mg PO BID 10/03/16 [History] metHOTREXate sodium [Methotrexate] 20 mg PO MO 10/03/16 [History] Albuterol Sulfate [Albuterol Sulfate Hfa] 2 puff PO RT-Q4H PRN 11/23/22 [History] Apixaban [Eliquis] 5 mg PO BID 11/23/22 [History] Butalb/APAP/Caff 50-325-40Mg [Fioricet 50-325-40] 1 tab PO DAILY PRN 11/23/22 [History] Cyclobenzaprine [Flexeril] 10 mg PO BID 11/23/22 [History] Dexlansoprazole [Dexlansoprazole Dr] 30 mg PO DAILY 11/23/22 [History] Famotidine [Pepcid] 40 mg PO BID 11/23/22 [History] Levothyroxine Sodium [Synthroid] 25 mcg PO DAILY 11/23/22 [History] Vibegron [Gemtesa] 75 mg PO DAILY 11/23/22 [History] ondansetron HCL [Zofran] 8 mg PO TID PRN 11/23/22 [History] Follow up Appointment(s)/Referral(s): Fab Del Rosario DO [STAFF PHYSICIAN] - As Needed (Keep scheduled appointment ) Nahun Choudhury DO [Primary Care Provider] - 1-2 days Discharge Disposition: HOME SELF-CARE
[2022-11-25 11:57] LABS: Basophils # (A) 0.04 X 10*3/uL (0.00-0.10); Basophils % (A) 0.6 %; Eosinophils # (A) 0.21 X 10*3/uL (0.04-0.35); Eosinophils % (A) 3.3 %; Lymphocytes # (A) 2.28 X 10*3/uL (0.90-5.00); Lymphocytes % (A) 36.3 %; Monocytes % (A) 9.6 %; Neutrophils # (A) 3.09 X 10*3/uL (1.80-7.70); Neutrophils % (A) 49.2 %
[2022-11-25 11:58] LABS: Acanthocytes 2+; Macrocytosis (M) 2+; Polychromasia 2+
== END 2022-11-25 11:36 | disposition home or self-care (01) | DRG 301 ==
LOC: EC 19:39 → 4SSUR 20:42
PROVIDERS: ADMIT Hospitalist; ATTEND Hospitalist
DX: I82.411 Acute embolism and thrombosis of right femoral vein (principal); I82.431 Acute embolism and thrombosis of right popliteal vein; I82.4Z1 Acute embolism and thrombosis of unspecified deep veins of right distal lower extremity; E03.9 Hypothyroidism, unspecified; I10 Essential (primary) hypertension; M06.9 Rheumatoid arthritis, unspecified; M19.90 Unspecified osteoarthritis, unspecified site; M79.7 Fibromyalgia; Z79.890 Hormone replacement therapy; Z79.01 Long term (current) use of anticoagulants; Z79.899 Other long term (current) drug therapy; Z86.718 Personal history of other venous thrombosis and embolism; Z88.0 Allergy status to penicillin; Z98.51 Tubal ligation status; Z96.643 Presence of artificial hip joint, bilateral; Z96.653 Presence of artificial knee joint, bilateral; Z98.1 Arthrodesis status
CPT/HCPCS: 36415; 80053; 82272; 83735; 84100; 84484; 85025; 85610; 85730; 93005; 94760

== ENCOUNTER 2024-04-29 13:08 | Observation (INO) | payer MEDICARE, OTHER ==
--- NOTE | 2024-04-29 13:17 | ED ---
Female Urogenital HPI - General Chief complaint: Vaginal Bleeding Stated complaint: Post op complication, vaginal bleeding Time Seen by Provider: 04/29/24 13:17 Source: patient, RN notes reviewed Mode of arrival: ambulatory Limitations: no limitations - History of Present Illness Initial comments: This is a 44-year-old female presents emergency for chief complaint of postoperative bleeding. Patient is that she had endometrial ablation completed earlier this morning with Dr. Escobar, and is concerned that she has had prolonged bleeding after the procedure. She was informed by surgeon to report to the emergency department for further evaluation. Patient is currently on Eliquis for history of blood clots and states that she took her dose yesterday evening. She denies heart palpitations, dizziness, lightheadedness, nausea, vomiting. - Related Data Home Medications Medication Instructions Recorded Confirmed Cetirizine HCl 10 mg PO DAILY 10/03/16 04/29/24 Folic Acid 1 mg PO DAILY 10/03/16 04/29/24 HYDROcodone/APAP 10-325MG [Ortley 1 tab PO QID PRN 10/03/16 04/29/24 10-325] Pregabalin [Lyrica] 225 mg PO BID 10/03/16 04/29/24 metHOTREXate sodium [Methotrexate] 20 mg PO MO 10/03/16 04/29/24 Albuterol Sulfate [Albuterol 2 puff INHALATION RT-Q4H PRN 11/23/22 04/29/24 Sulfate Hfa] Apixaban [Eliquis] 5 mg PO BID 11/23/22 04/29/24 Cyclobenzaprine [Flexeril] 10 mg PO BID PRN 11/23/22 04/29/24 Famotidine [Pepcid] 40 mg PO BID 11/23/22 04/29/24 Levothyroxine Sodium [Synthroid] 25 mcg PO DAILY 11/23/22 04/29/24 Vibegron [Gemtesa] 75 mg PO DAILY 11/23/22 04/29/24 ondansetron HCL [Zofran] 8 mg PO TID 11/23/22 04/29/24 Celecoxib [CeleBREX] 200 mg PO DAILY 04/29/24 04/29/24 Fluticasone Nasal Morris [Flonase 1 spr EA NOSTRIL DAILY 04/29/24 04/29/24 Nasal Morris] Losartan [Cozaar] 50 mg PO DAILY 04/29/24 04/29/24 Magnesium Oxide [Mag-Ox] 400 mg PO BID 04/29/24 04/29/24 Pantoprazole [Protonix] 40 mg PO DAILY 04/29/24 04/29/24 Simponi Infusion 1 dose IV Q60D 04/29/24 04/29/24 Allergies Allergy/AdvReac Type Severity Reaction Status Date / Time Penicillins Allergy Unknown Verified 04/29/24 13:12 Childhood Review of Systems ROS Statement: Those systems with pertinent positive or pertinent negative responses have been documented in the HPI. ROS Other: All systems not noted in ROS Statement are negative. Past Medical History Past Medical History: Deep Vein Thrombosis (DVT), Fibromyalgia, GERD/Reflux, Hypertension, Osteoarthritis (OA) History of Any Multi-Drug Resistant Organisms: None Reported Past Surgical History: Orthopedic Surgery, Tubal Ligation Additional Past Surgical History / Comment(s): bilateral hip, knee replacements, ankle fusions Past Anesthesia/Blood Transfusion Reactions: No Reported Reaction Past Psychological History: No Psychological Hx Reported Smoking Status: Never smoker Past Alcohol Use History: Rare Past Drug Use History: None Reported - Past Family History Mother Family Medical History: Cancer Father Family Medical History: Cancer General Exam Limitations: no limitations General appearance: alert, in no apparent distress Eye exam: Present: normal appearance, PERRL, EOMI. Absent: scleral icterus, conjunctival injection, periorbital swelling Neck exam: Present: normal inspection. Absent: tenderness, meningismus, lymphadenopathy Respiratory exam: Present: normal lung sounds bilaterally. Absent: respiratory distress, wheezes, rales, rhonchi, stridor Cardiovascular Exam: Present: regular rate, normal rhythm, normal heart sounds. Absent: systolic murmur, diastolic murmur, rubs, gallop, clicks GI/Abdominal exam: Present: soft, normal bowel sounds. Absent: distended, tenderness, guarding, rebound, rigid Extremities exam: Present: normal inspection, full ROM, normal capillary refill. Absent: tenderness, pedal edema, joint swelling, calf tenderness Back exam: Present: normal inspection Neurological exam: Present: alert, oriented X3, CN II-XII intact Course Vital Signs 04/29/24 04/29/24 13:10 15:14 Temperature 98.1 F Pulse Rate 118 H 84 Respiratory 20 18 Rate Blood Pressure 154/110 119/77 O2 Sat by Pulse 97 96 Oximetry Medical Decision Making - Medical Decision Making Was pt. sent in by a medical professional or institution (, REGINALD, ACCOUNT SERVICES COORDINATOR, urgent care, hospital, or fpc...) When possible be specific @ -No Did you speak to anyone other than the patient for history (EMS, parent, family, police, friend...)? What history was obtained from this source @ -No Did you review nursing and triage notes (agree or disagree)? Why? @ -I reviewed and agree with nursing and triage notes Were old charts reviewed (outside hosp., previous admission, EMS record, old EKG, old radiological studies, urgent care reports/EKG's, fpc records)? Report findings @ -No old charts were reviewed Differential Diagnosis (chest pain, altered mental status, abdominal pain women, abdominal pain men, vaginal bleeding, weakness, fever, dyspnea, syncope, headache, dizziness, GI bleed, back pain, seizure, CVA, palpatations, mental health, musculoskeletal)? @ -Differential Vaginal Bleeding: Spontaneous , threatened , molar , ectopic , bloody show, incompetent cervix, abruptioplacenta, placenta previa, uterine rupture, dysfunctional uterine bleeding, hemorrhage, uterine fibroids, this is not meant to be an all-inclusive list. EKG interpreted by me (3pts min.). @ -None X-rays interpreted by me (1pt min.). @ -None done CT interpreted by me (1pt min.). @ -None done U/S interpreted by me (1pt. min.). @ -None done What testing was considered but not performed or refused? (CT, X-rays, U/S, labs)? Why? @ -None What meds were considered but not given or refused? Why? @ -None Did you discuss the management of the patient with other professionals (professionals i.e. , REGINALD, ACCOUNT SERVICES COORDINATOR, lab, RT, psych nurse, social organization professor, preschool teacher assistant, teacher, public service officer, case finisher)? Give summary @ -Spoke with the patient's process controls technician, Dr. Escobar, in regard to the patient's presentation and continued vaginal bleeding after bedside procedure. Is recommend that patient be admitted to labor and delivery unit for observation status for further evaluation. Was smoking cessation discussed for >3mins.? @ -No Was critical care preformed (if so, how long)? @ -No Were there social determinants of health that impacted care today? How? (Homelessness, low income, unemployed, alcoholism, drug addiction, transportation, low edu. Level, literacy, decrease access to med. care, [facility], rehab)? @ -No Was there de-escalation of care discussed even if they declined (Discuss DNR or withdrawal of care, Hospice)? DNR status @ -No What co-morbidities impacted this encounter? (DM, HTN, Smoking, COPD, CAD, Cancer, CVA, ARF, Chemo, Hep., AIDS, mental health diagnosis, sleep apnea, morbid obesity)? @ -Blood clots on Eliquis Was patient admitted / discharged? Hospital course, mention meds given and route, prescriptions, significant lab abnormalities, going to OR and other pertinent info. @ -Admitted. 44 year old female with vaginal bleeding post-operatively. On my evaluation patient just to cough no signs acute stress. She is noted to have mild suprapubic tenderness to palpation. She states that she is saturating briefs and sanitary pads. Her vitals are stable. Patient's process controls technician evaluated patient at bedside and completed a procedure. However after over an hour of observation patient is continuing to have bleeding. Patient will be admitted to labor and delivery unit for observation for further evaluation of continued vaginal bleeding postoperatively. Patient's laboratory results reveal a mild anemia of 10.7 that is chronic for the patient, hematocrit 33.1, coagulation profile within normal limits, mild hyperglycemia of 202. Case discussed with my attending Dr. Tidwell Undiagnosed new problem with uncertain prognosis? @ -No Drug Therapy requiring intensive monitoring for toxicity (Heparin, Nitro, Insulin, Cardizem)? @ -No Were any procedures done? @ -No Diagnosis/symptom? @ -Vaginal bleeding postoperatively Acute, or Chronic, or Acute on Chronic? @ -Acute Uncomplicated (without systemic symptoms) or Complicated (systemic symptoms)? @ -Complicated Side effects of treatment? @ -No Exacerbation, Progression, or Severe Exacerbation? @ -No Poses a threat to life or bodily function? How? (Chest pain, USA, NH, pneumonia, PE, COPD, DKA, ARF, appy, cholecystitis, CVA, Diverticulitis, Homicidal, Suicidal, threat to staff... and all critical care pts) @ -No - Lab Data Result diagrams: 04/29/24 14:13 04/29/24 14:13 Lab Results 04/29/24 04/29/24 04/29/24 Range/Units 14:13 14:13 14:13 WBC 4.8 (3.8-10.6) k/uL RBC 3.29 L (3.80-5.40) m/uL Hgb 10.7 L (11.4-16.0) gm/dL Hct 33.1 L (34.0-46.0) % MCV 100.5 H (80.0-100.0) fL MCH 32.5 (25.0-35.0) pg MCHC 32.3 (31.0-37.0) g/dL RDW 17.4 H (11.5-15.5) % Plt Count 224 (150-450) k/uL MPV 8.3 Neutrophils % 91 % Lymphocytes % 6 % Monocytes % 1 % Eosinophils % 0 % Basophils % 0 % Neutrophils # 4.4 (1.3-7.7) k/uL Lymphocytes # 0.3 L (1.0-4.8) k/uL Monocytes # 0.1 (0-1.0) k/uL Eosinophils # 0.0 (0-0.7) k/uL Basophils # 0.0 (0-0.2) k/uL Hypochromasia Slight Anisocytosis Slight Macrocytosis Slight PT 10.6 (10.0-12.5) sec INR 1.0 (<1.2) APTT 21.4 L (22.0-30.0) sec Sodium 137 (137-145) mmol/L Potassium 4.5 (3.5-5.1) mmol/L Chloride 106 (98-107) mmol/L Carbon Dioxide 22 (22-30) mmol/L Anion Gap 9 mmol/L BUN 14 (7-17) mg/dL Creatinine 0.79 (0.52-1.04) mg/dL Est GFR (CKD-EPI)AfAm >90 (>60 ml/min/1.73 sqM) Est GFR (CKD-EPI)NonAf >90 (>60 ml/min/1.73 sqM) Glucose 202 H (74-99) mg/dL Calcium 8.8 (8.4-10.2) mg/dL Total Bilirubin 0.8 (0.2-1.3) mg/dL AST 45 H (14-36) U/L ALT 28 (4-34) U/L Alkaline Phosphatase 74 (38-126) U/L Total Protein 7.0 (6.3-8.2) g/dL Albumin 4.2 (3.5-5.0) g/dL Disposition Clinical Impression: Post-op bleeding Disposition: ADMITTED IP TO THIS [facility] Condition: Stable Decision to Admit Reason: Admit from EC Decision Date: 04/29/24 Decision Time: 16:04
[2024-04-29] MEDS: FERRIC SUBSULFATE (MONSELS) JAR TOPICAL ONE ×2 (14:00→19:00)
[2024-04-29 14:30] LABS: Anisocytosis Slight; Basophils % (A) 0 %; Eosinophils % (A) 0 %; HCT 33.1 % (34.0-46.0); HGB 10.7 gm/dL (11.4-16.0); Hypochromasia Slight; Lymphocytes # (A) 0.3 k/uL (1.0-4.8); Lymphocytes % (A) 6 %; MCH 32.5 pg (25.0-35.0); MCHC 32.3 g/dL (31.0-37.0); MCV 100.5 fL (80.0-100.0); Macrocytosis Slight; Mean Platelet Volume 8.3; Monocytes # (A) 0.1 k/uL (0-1.0); Monocytes % (A) 1 %; Neutrophils # (A) 4.4 k/uL (1.3-7.7); Neutrophils % (A) 91 %; Platelet Count 224 k/uL (150-450); RBC 3.29 m/uL (3.80-5.40); RDW 17.4 % (11.5-15.5); WBC 4.8 k/uL (3.8-10.6)
[2024-04-29 14:50] LABS: Prothrombin Time 10.6 sec (10.0-12.5)
--- NOTE | 2024-04-29 14:52 | P.OBCN ---
History of Present Illness Consult date: 04/29/24 Reason for consult: other (Vaginal bleeding status post endometrial ablation this morning) History of present illness: The patient is a 32-year-old woman who carries a history of multiple DVTs and is permanently on Eliquis. As a result of her Eliquis, she had significant menorrhagia and has developed anemia over time. She presented to the office and was given a number of different alternatives to try to manage this. She ultimately opted to proceed with diagnostic hysteroscopy, D&C, and Makeda endometrial ablation. She was taken for those procedures this morning at the [facility] surgery redding. The procedure itself was of little consequence and appeared to have an excellent result from the hysteroscopic perspective. During the procedure, the single-tooth tenaculum that was used to stabilize the cervix and uterus during the procedure tore through the cervix and she was having some bleeding from that site at the end of the procedure. Pressure was applied and it was thought to be under control. She was ultimately discharged from the outpatient surgery center but, at home, had significant vaginal bleeding such that she was essentially unable to come out of the bathroom. She was instructed to come to the emergency room for evaluation. She did continue to have bleeding here. Vital signs are stable and she denies any signs or symptoms of orthostasis. Review of Systems Review of systems is confined to history of present illness. Past Medical History Past Medical History: Deep Vein Thrombosis (DVT), Fibromyalgia, GERD/Reflux, Hypertension, Osteoarthritis (OA) History of Any Multi-Drug Resistant Organisms: None Reported Past Surgical History: Orthopedic Surgery, Tubal Ligation Additional Past Surgical History / Comment(s): bilateral hip, knee replacements, ankle fusions Past Anesthesia/Blood Transfusion Reactions: No Reported Reaction Past Psychological History: No Psychological Hx Reported Smoking Status: Never smoker Past Alcohol Use History: Rare Past Drug Use History: None Reported - Past Family History Mother Family Medical History: Cancer Father Family Medical History: Cancer Medications and Allergies Home Medications Medication Instructions Recorded Confirmed Type Cetirizine HCl 10 mg PO DAILY 10/03/16 11/23/22 History Folic Acid 1 mg PO DAILY 10/03/16 11/23/22 History HYDROcodone/APAP 10-325MG [Pass [place] 1 tab PO QID 10/03/16 11/23/22 History 10-325] Pregabalin [Lyrica] 225 mg PO BID 10/03/16 11/23/22 History metHOTREXate sodium [Methotrexate] 20 mg PO MO 10/03/16 11/23/22 History Albuterol Sulfate [Albuterol 2 puff PO RT-Q4H PRN 11/23/22 11/23/22 History Sulfate Hfa] Apixaban [Eliquis] 5 mg PO BID 11/23/22 11/23/22 History Butalb/APAP/Caff 50-325-40Mg 1 tab PO DAILY PRN 11/23/22 11/23/22 History [Fioricet 50-325-40] Cyclobenzaprine [Flexeril] 10 mg PO BID 11/23/22 11/23/22 History Dexlansoprazole [Dexlansoprazole 30 mg PO DAILY 11/23/22 11/23/[address]] Famotidine [Pepcid] 40 mg PO BID 11/23/22 11/23/22 History Levothyroxine Sodium [Synthroid] 25 mcg PO DAILY 11/23/22 11/23/22 History Vibegron [Gemtesa] 75 mg PO DAILY 11/23/22 11/23/22 History ondansetron HCL [Zofran] 8 mg PO TID PRN 11/23/22 11/23/22 History Allergies Allergy/AdvReac Type Severity Reaction Status Date / Time Penicillins Allergy Unknown Verified 04/29/24 13:12 Childhood Exam Vital Signs Temp Pulse Resp BP Pulse Ox 04/29/24 13:10 98.1 F 118 H 20 154/110 97 Intake and Output 04/28/24 04/29/24 04/29/24 22:59 06:59 14:59 Other: Weight 98.883 kg In general, this is a well-developed, moderately obese white female in no acute distress. Her heart has a regular rhythm and rate without murmur. Her lungs are clear to auscultation bilaterally in all uribe. Her abdomen is obese, nondistended, soft, nontender, and without masses. Her extremities are without any cyanosis, clubbing, or edema and are nontender to palpation bilaterally. Speculum examination demonstrates a small to moderate amount of blood in the vaginal vault with some ongoing active bleeding though the site could not be accurately identified with the tools available in the emergency room. Swabs coated with Monsel's solution were applied to the area of concern at the anterior lip of the cervix and held with pressure for some time. After the first swab there appeared to be no active ongoing bleeding. A second and third swab were applied for extra measure. Observation for approximately a minute failed to demonstrate any further active bleeding at the apex of the vagina and the speculum was removed. Results Result Diagrams: 04/29/24 14:13 Abnormal Lab Results - Last 24 Hours (Table) 04/29/24 Range/Units 14:13 RBC 3.29 L (3.80-5.40) m/uL Hgb 10.7 L (11.4-16.0) gm/dL Hct 33.1 L (34.0-46.0) % MCV 100.5 H (80.0-100.0) fL RDW 17.4 H (11.5-15.5) % Lymphocytes # 0.3 L (1.0-4.8) k/uL Assessment and Plan (1) Cervical laceration Current Visit: Yes Status: Acute Code(s): S37.63XA - LACERATION OF UTERUS, I NITIAL ENCOUNTER SNOMED Code(s): 648091018 (2) Post-op bleeding Current Visit: Yes Status: Acute Code(s): DVW4065 - SNOMED Code(s): 533621818 Plan: The site for bleeding appears to now have been controlled. Hemoglobin is in the stable range and actually above her previous hemoglobin measurements in the emergency room. We will await return of all of her other labs and continue to observe for the next 1 to 2 hours. Should there be no further active ongoing bleeding, she will be discharged home to follow-up as previously scheduled in the office in approximately 4 weeks time. I have instructed her to have nothing in the vagina for at least 2 weeks and to call for any significantly increased bleeding or other problems.
[2024-04-29 15:01] LABS: ALT 28 U/L (4-34); African American GFR (CKD) >90 (>60 ml/min/1.73 sqM); Albumin 4.2 g/dL (3.5-5.0); Anion Gap 9 mmol/L; Blood Urea Nitrogen 14 mg/dL (7-17); Calcium 8.8 mg/dL (8.4-10.2); Carbon Dioxide 22 mmol/L (22-30); Chloride 106 mmol/L (98-107); Glucose 202 mg/dL (74-99); Non-African American GFR(CKD) >90 (>60 ml/min/1.73 sqM); Sodium 137 mmol/L (137-145); Total Bilirubin 0.8 mg/dL (0.2-1.3)
[2024-04-29 15:07] LABS: Partial Thromboplastin Time 21.4 sec (22.0-30.0)
[2024-04-29 15:13] LABS: AST 45 U/L (14-36); Alkaline Phosphatase 74 U/L (38-126); Potassium 4.5 mmol/L (3.5-5.1)
[2024-04-29] MEDS ORDERED: NALOXONE 0.4 MG/ML 1 ML VIAL IV PRN (16:04)
--- NOTE | 2024-04-29 19:16 | P.PN ---
Subjective Progress Note Date: 04/29/24 Principal diagnosis: Vaginal bleeding status post endometrial ablation this morning After evaluation in the emergency room and with the intention of sending the patient home, she continued to report moderate to heavy bleeding. She was therefore admitted for 23-hour observation and transferred to labor and delivery where a more thorough examination could be undertaken. She currently reports that she is still bleeding but significantly less than earlier in the day. No other signs or symptoms, no symptoms of orthostasis. No ongoing pain. Objective - Vital Signs Vital signs: Vital Signs Temp 98.2 F 04/29/24 18:21 Pulse 73 04/29/24 18:21 Resp 17 04/29/24 18:21 BP 138/89 04/29/24 18:21 Pulse Ox 97 04/29/24 18:21 FiO2 Intake & Output 04/29/24 04/29/24 04/30/24 06:59 18:59 06:59 Weight 99.79 kg - Exam Speculum examination is performed on labor and delivery bed having broken down the bed to allow for a more comfortable lithotomy position. There is no active bleeding at the apex of the vagina nor around the cervix and there appears to be coagulated Monsel's solution present. 1 swab of Monsel solution was again applied to the area of concern and further examination then abandoned as there is no active bleeding. - Labs CBC & Chem 7: 04/29/24 14:13 04/29/24 14:13 Labs: Abnormal Lab Results - Last 24 Hours (Table) 04/29/24 04/29/24 04/29/24 Range/Units 14:13 14:13 14:13 RBC 3.29 L (3.80-5.40) m/uL Hgb 10.7 L (11.4-16.0) gm/dL Hct 33.1 L (34.0-46.0) % MCV 100.5 H (80.0-100.0) fL RDW 17.4 H (11.5-15.5) % Lymphocytes # 0.3 L (1.0-4.8) k/uL APTT 21.4 L (22.0-30.0) sec Glucose 202 H (74-99) mg/dL AST 45 H (14-36) U/L Assessment and Plan (1) Cervical laceration Current Visit: Yes Status: Acute Code(s): S37.63XA - LACERATION OF UTERUS, INITIAL ENCOUNTER SNOMED Code(s): 587808867 (2) Post-op bleeding Current Visit: Yes Status: Acute Code(s): BLQ5607 - SNOMED Code(s): 735102865 Plan: She has currently been admitted for 23-hour observation. If however, she has no bleeding over the next 1 to 2 hours, she will be discharged home with instructions as from the outpatient surgery center to follow-up with me in 4 weeks routinely and to call for any problems of concern. If she continues to have any significant bleeding, CBC will be repeated in the morning and she may need to return to the operating room for more thorough examination. Otherwise the patient is to have regular diet and activity as tolerated.
[2024-04-29] MEDS: ACETAMINOPHEN TAB 500 MG TAB PO STA (19:40)
[2024-04-29 20:49] VITALS: BP 143/89; PULSE 79; RESP 16; TEMP 98.5
== END 2024-04-29 21:25 | disposition home or self-care (01) ==
LOC: EC 13:08 → 4FBP 15:59
PROVIDERS: ADMIT Obstetrics & Gynecology; ATTEND Obstetrics & Gynecology
DX: N99.71 Accidental puncture and laceration of a genitourinary system organ or structure during a genitourinary system procedure (principal); M79.7 Fibromyalgia; K21.9 Gastro-esophageal reflux disease without esophagitis; M19.90 Unspecified osteoarthritis, unspecified site; Z79.01 Long term (current) use of anticoagulants; Z86.718 Personal history of other venous thrombosis and embolism; Z79.899 Other long term (current) drug therapy; Z79.890 Hormone replacement therapy; Z79.1 Long term (current) use of non-steroidal anti-inflammatories (NSAID); Z88.0 Allergy status to penicillin
CPT/HCPCS: 99284; 36415; 80053; 85025; 85610; 85730; G0378

== ENCOUNTER → 2024-10-06 | Outpatient (CLI) | payer MEDICARE, OTHER ==
--- NOTE | 2024-10-06 14:39 | MM ---
Reason for Exam: Screening (asymptomatic). Last mammogram was performed 2 year(s) and 1 month(s) ago. Patient History: Menarche at age 16. First Full-Term at age 21. Perimenopausal. Risk Values: Caitlin 5 year model risk: 0.6%. NCI Lifetime model risk: 8.0%. Prior Study Comparison: 08/09/2021 Bilateral Screening Mammogram, [facility]. 02/10/2022 Left MG 3D diag mammo w/cad LT, [facility]. 09/22/2022 Bilateral MG 3D diag mammo w/cad EDDIE, [facility]. Tissue Density: There are scattered areas of fibroglandular density. Findings: Analyzed By CAD. There is no suspicious group of microcalcifications or new suspicious mass in either breast. Overall Assessment: Benign, BI-RAD 2 Management: Screening Mammogram of both breasts in 1 year. . Patient should continue monthly self-breast exams. A clinical breast exam by your physician is recommended on an annual basis. This exam should not preclude additional follow-up of suspicious palpable abnormalities. Note on Caitlin scores and lifetime risk: 1. A Caitlin score greater than 3% is considered moderate risk. If this is the case, consider specialist referral to assess eligibility for a risk reducing agent. 2. If overall lifetime risk for the development of breast cancer is 20% or higher, the patient may qualify for future screening with alternating mammogram and breast MRI. [facility], , 10/06/2024 2:36 PM. Electronically signed and approved by: Zachery Nava M.D. Radiologis
== END | disposition home or self-care (01) ==
LOC: RADMAMWWP 14:17
PROVIDERS: ATTEND Family Medicine
DX: Z12.31 Encounter for screening mammogram for malignant neoplasm of breast (principal); R92.323 Mammographic fibroglandular density, bilateral breasts
CPT/HCPCS: 77063; 77067